=== PATIENT | female | born 2000 | race Two or more races ===

== ENCOUNTER 2024-01-23 09:23 | Inpatient (IN) | payer MEDICAID, SELFPAY ==
[2024-01-23] VITALS (13 sets, daily range): BP systolic 105–135; BP diastolic 56–90; PULSE 66–94; RESP 18; TEMP 36.7–37.1; O2SAT 98–100; BMI 27.1
[2024-01-23] MEDS: BETAMET ACET/BETAMET NA PH (Celestone) 6 MG/ML VIAL 12 MG IM (09:50)
[2024-01-23 09:54] LABS: Basophils % (Auto) 0 % (0-2.5); Eosinophils # (Auto) 0.2 Thou/mm3 (0.0-0.5); Eosinophils % (Auto) 2 % (0-10); Hematocrit 31.3 % (36.0-46.0); Immature Granulocytes % (Auto) 1 % (0-0); Immature Granulocytes Auto 0.05 Thou/mm3 (0.00-0.00); Lymphocytes # (Auto) 3.6 Thou/mm3 (1.0-4.8); Lymphocytes % (Auto) 35 % (10-50); Mean Corpuscular HGB Conc 35.1 g/dl (31.0-37.0); Mean Corpuscular Hemoglobin 30.1 pg (25.0-35.0); Mean Corpuscular Volume 86 fL (80-100); Monocytes # (Auto) 0.7 Thou/mm3 (0.0-0.8); Monocytes % (Auto) 7 % (0-12); Neutrophils # (Auto) 5.5 Thou/mm3 (1.8-7.7); Neutrophils % (Auto) 55 % (37-80); Nucleated Red Blood Cell % 0 /100 WBC (0); Platelet Count 195 Thou/mm3 (140-440); RDW Standard Deviation 38.8 fL (36.4-46.3); Red Blood Count 3.66 Miln/mm3 (4.00-5.20)
[2024-01-23] MEDS: OXYTOCIN in NS 20 units 20 UNIT/1,000 ML BAG 125 UNIT IV (10:30)
[2024-01-23] MEDS: LIDOCAINE HCL 1% 20 ML VIAL INFL (10:35)
--- NOTE | 2024-01-23 10:42 | PD.LDHP ---
Documentation for date of: 01/23/24 OB Labor/Induct. HPI History of Present Illness : 2 Para: 1 Gestational Age (weeks): 35 History of present illness: 23-year-old G2, P1 who comes at approximately 35 weeks in active labor. Patient states being seen at [facility], denies medical or surgical history States allergy to penicillin Review of Systems Allergic/Immunologic Comments: Penicillin Past Medical History Surgical History OTHER SURGICAL HX: Denies Past Medical History Comments PMH COMMENT: Denies Meds Home Medications and Allergies Home Medications ?Medication ?Instructions ?Recorded ?Confirmed ?Type No Known Home Medications 01/23/24 01/23/24 History Allergies Allergy/AdvReac Type Severity Reaction Status Date / Time Penicillins Allergy Rash Verified 01/23/24 09:35 OB Exam Physical Exam Vital signs: Pulse BP 82 111/56 L 01/23/24 10:40 01/23/24 10:40 Detailed Labor and Delivery Exam Dilation (cm): 8 Effacement (%): 100 station: 0 Baseline heart rate: 140 monitor accelerations: 15x15 monitor decelerations: None 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 Active phase of labor. GBS unknown OB Assessment & Plan Additional Plan Additional Plan Comment: Admit to labor delivery. Celestone for lung maturation. Vancomycin for GBS prophylaxis due to penicillin allergy
[2024-01-23 12:48] LABS: Syphilis Nonreactive (Nonreactive)
--- NOTE | 2024-01-23 13:35 | OBDSUM_ITS ---
Data (Gill) Data : 2 Para: 1 Term: 0 : 1 : 0 Delivery Data (Gill) Labor Data ROM Date: 01/23/24 ROM Time: 10:04 Rupture Type: AROM Delivery Data Labor Onset Stage 1 Date: 01/23/24 Labor Onset Stage 1 Time: 09:25 Labor Onset Stage 2 Date: 01/23/24 Labor Onset Stage 2 Time: 10:05 Delivery Date: 01/23/24 Delivery Time: 10: Placenta Delivery Date: 01/23/24 Placenta Delivery Time: 10:29 Delivered by: Ramandeep Garrido Delivery nurse: Avani Calero Other staff at delivery: Nursery Nurse Other staff at delivery: 2nd Nurse Other staff at delivery: Branch Assistant Other staff at delivery: Nurse Other staff at delivery: Lacy Deng Other staff at delivery: Karla Soriano Delivery Method Delivery: Vaginal Delivery Type: Spontaneous Presentation: Vertex Anesthesia Type Primary Anesthesia: None Placenta Placenta Delivery: Spontaneous Cord Sample: Cord Blood Obtained Umbilical Cord Umbilical Vessels: 3 Data (Gill) [place] Data Gender: Female Infant Weight Grams: 2320 1 Minute Total: 7 5 Minute Total: 9
[2024-01-23] MEDS: IBUPROFEN TAB 400 MG TABLET 800 MG PO (15:53)
[2024-01-23 15:58] LABS: Amphetamine/Metham Scrn,Ur OB Negative (Negative); Benzoylecgonine Screen, Ur OB Negative (Negative); Opiate Screen,Urine OB Negative (Negative); THC Screen,Urine OB Negative (Negative)
[2024-01-23 17:32] LABS: HIV (1&2) Antibody Rapid Non-Reactive
[2024-01-23 17:43] LABS: Chlamydia trachomatis PCR Negative (Not Detect); Neisseria Gonorrhoeae DNA PCR Negative (Not Detect); Trichomonas Negative (Negative)
[2024-01-24] VITALS: BP 110/70; PULSE 71; RESP 18; TEMP 36.9; O2SAT 97
[2024-01-24 00:35] LABS: Hepatitis B Surface Antigen Non Reactive (Non React); Rubella, IgG Antibody Equivocal
[2024-01-24 01:00] LABS: Hepatitis C Antibody Non Reactive (Non React)
[2024-01-24 04:00] VITALS: BP 106/65; PULSE 88; RESP 18; TEMP 36.9; O2SAT 100
[2024-01-24 07:10] LABS: Basophils % (Auto) 0 % (0-2.5); Eosinophils % (Auto) 0 % (0-10); Hematocrit 31.6 % (36.0-46.0); Hemoglobin 11.4 g/dL (12.0-16.0); Immature Granulocytes % (Auto) 1 % (0-0); Immature Granulocytes Auto 0.13 Thou/mm3 (0.00-0.00); Lymphocytes # (Auto) 2.4 Thou/mm3 (1.0-4.8); Lymphocytes % (Auto) 11 % (10-50); Mean Corpuscular HGB Conc 36.1 g/dl (31.0-37.0); Mean Corpuscular Hemoglobin 30.7 pg (25.0-35.0); Mean Corpuscular Volume 85 fL (80-100); Monocytes # (Auto) 1.4 Thou/mm3 (0.0-0.8); Monocytes % (Auto) 7 % (0-12); Neutrophils # (Auto) 17.3 Thou/mm3 (1.8-7.7); Neutrophils % (Auto) 82 % (37-80); Nucleated Red Blood Cell % 0 /100 WBC (0); Platelet Count 254 Thou/mm3 (140-440); RDW Standard Deviation 38.3 fL (36.4-46.3); Red Blood Count 3.71 Miln/mm3 (4.00-5.20); White Blood Count 21.2 Thou/mm3 (3.6-11.0)
[2024-01-24 07:40] VITALS: BP 103/70; PULSE 73; RESP 17; TEMP 36.6; O2SAT 98
--- NOTE | 2024-01-24 08:22 | PD.LDPPPRG ---
Subjective Subjective Interval history: Patient is doing well denies any fever, vaginal bleeding. Mentions cramping that she feels in her pelvis however rates the pain at 6 out of 10. Denies any nausea vomiting or sharp pain Exam Vital Signs Temp Pulse Resp BP Pulse Ox O2 Del Method 98.4 F 88 18 106/65 100 Room Air 01/24/24 04:00 01/24/24 04:00 01/24/24 04:00 01/24/24 04:00 01/24/24 04:00 01/24/24 04:00 Constitutional Constitutional: no acute distress Routine HEENT Exam Head: Present normocephalic and atraumatic Eye: Present EOMI and PERRL ENT: Present mucous membranes moist Routine Neck Exam Neck: Present supple and trachea midline Routine Respiratory Exam Respiratory: Present chest non-tender, lungs clear, normal breath sounds and no resp distress Routine Cardiovascular Exam Cardiovascular: Present RRR Routine Abdominal Exam Abdominal: Present soft and normoactive bowel sounds Routine Extremities Exam Extremities: Present full ROM Routine Skin Exam Skin: Present intact, dry and warm Routine Neurological Exam Neurological: Present alert, oriented X3 and CN II-XII intact Routine Psychiatric Exam Psychiatric: Present normal affect and normal thought process Objective Labs 01/24/24 06:45 Labs: Laboratory Results - last 24 hr 01/23/24 01/23/24 01/23/24 09:40 13:30 15:07 WBC 10.0 RBC 3.66 L Hgb 11.0 L Hct 31.3 L MCV 86 MCH 30.1 MCHC 35.1 RDW Std Deviation 38.8 Plt Count 195 Neut % (Auto) 55 Lymph % (Auto) 35 Callahan % (Auto) 7 Eos % (Auto) 2 Baso % (Auto) 0 Neut # (Auto) 5.5 Lymph # (Auto) 3.6 Callahan # (Auto) 0.7 Eos # (Auto) 0.2 Baso # (Auto) 0.0 Immature Gran # (Auto) 0.05 H Absolute Nucleated RBC 0.00 Immature Gran % 1 H Nucleated RBC % 0 Urine Opiates Screen U Amphetamin/Meth Scrn U Cocaine Metab Screen U Marijuana (THC) Screen Syphilis Serology Nonreactive Chlam trachomat DNA PCR Negative Hep Bs Antigen Hepatitis C Antibody Non Reactive HIV 1&2 Antibody Rapid N.gonorrhoeae DNA (PCR) Negative Rubella IgG Antibody Trichomonas DNA Probe Negative Blood Type O Negative Rho(D) IG Studies Ready Antibody Screen POSITIVE Antibody Identification Anti-D from RhoGam Maternal Bleed Negative Blood Bank Wristband ID Yes 01/23/24 01/24/24 15:10 06:45 WBC 21.2 H D RBC 3.71 L Hgb 11.4 L Hct 31.6 L MCV 85 MCH 30.7 MCHC 36.1 RDW Std Deviation 38.3 Plt Count 254 D Neut % (Auto) 82 H Lymph % (Auto) 11 Callahan % (Auto) 7 Eos % (Auto) 0 Baso % (Auto) 0 Neut # (Auto) 17.3 H Lymph # (Auto) 2.4 Callahan # (Auto) 1.4 H Eos # (Auto) 0.0 Baso # (Auto) 0.0 Immature Gran # (Auto) 0.13 H Absolute Nucleated RBC 0.00 Immature Gran % 1 H Nucleated RBC % 0 Urine Opiates Screen Negative U Amphetamin/Meth Scrn Negative U Cocaine Metab Screen Negative U Marijuana (THC) Screen Negative Syphilis Serology Chlam trachomat DNA PCR Hep Bs Antigen Non Reactive Hepatitis C Antibody HIV 1&2 Antibody Rapid Non-Reactive N.gonorrhoeae DNA (PCR) Rubella IgG Antibody Equivocal L Trichomonas DNA Probe Blood Type Rho(D) IG Studies Antibody Screen Antibody Identification Maternal Bleed Blood Bank Wristband ID Assessment & Plan Assessment Comment Assessment comment: 23-year-old status post vaginal deliveries post day 1 Delivery yesterday at 10 PM has not yet completed her 24 hours observation Meeting all milestones Baby at the bedside breast-feeding Plan Comment Plan Comment: Continue post care Anticipate discharge tomorrow Time Spent With Patient Time: Total time spent is greater than 50% in coordination of care (as documented) at patient's floor/unit and/or counseling patient:
[2024-01-24 11:00] VITALS: BP 105/69; PULSE 71; RESP 18; TEMP 36.8; O2SAT 100
[2024-01-24 20:00] VITALS: BP 103/65; PULSE 74; RESP 18; TEMP 36.6; O2SAT 98
[2024-01-25] VITALS: BP 99/62; PULSE 70; RESP 19; TEMP 36.5; O2SAT 97
[2024-01-25 04:00] VITALS: BP 104/65; PULSE 73; RESP 16; TEMP 36.6; O2SAT 97
--- NOTE | 2024-01-25 10:16 | PD.LDPPPRG ---
Subjective Subjective Interval history: Delivery type: Patient doing well this morning. No acute complaints. Ambulating, tolerating p.o. and voiding without difficulty. HTN/Pre-Eclampsia screen: No chest pain, shortness of breath, headache, visual changes, epigastric or right upper quadrant pain. Breast-feeding, lochia diminishing. Bowel: Flatus+/ BM+ Exam Vital Signs Temp Pulse Resp BP Pulse Ox O2 Del Method 98 F 73 16 104/65 97 Room Air 01/25/24 04:00 01/25/24 04:00 01/25/24 04:00 01/25/24 04:00 01/25/24 04:00 01/25/24 04:00 Constitutional Constitutional: no acute distress Routine HEENT Exam Head: Present normocephalic and atraumatic Eye: Present EOMI and PERRL ENT: Present mucous membranes moist Routine Neck Exam Neck: Present supple and trachea midline Routine Respiratory Exam Respiratory: Present chest non-tender, lungs clear, normal breath sounds and no resp distress Routine Cardiovascular Exam Cardiovascular: Present RRR Routine Abdominal Exam Abdominal: Present soft and normoactive bowel sounds Routine Extremities Exam Extremities: Present full ROM Routine Skin Exam Skin: Present intact, dry and warm Routine Neurological Exam Neurological: Present alert, oriented X3 and CN II-XII intact Routine Psychiatric Exam Psychiatric: Present normal affect and normal thought process Objective Labs 01/24/24 06:45 Assessment & Plan Problem List (1) delivery without spontaneous labor: Status: Acute Assessment and plan: 1. Continue routine /post-op care 2. Labs reviewed, cbc appropriate 3. Remove dressing/Renee 4. Encourage to ambulate, shower 5. Encourage PO intake, breast feeding Time Spent With Patient Time: Total time spent is greater than 50% in coordination of care (as documented) at patient's floor/unit and/or counseling patient:
--- NOTE | 2024-01-25 10:16 | PC.SS ---
PATTERNMAKER METAL BENCH conducted bedside contact with the patient to address nursing referral indicating patient?s delivered pre-term and in NICU. PATTERNMAKER METAL BENCH introduced self, role and basis of contact. Patient confirmed pre-term natural delivery of , Felicia. Original due date 02-24-24, per patient. J[place] is the patient?s second child. Oldest child is approximately 2 years old. Patient denied elevated presence of either anxiety or depression due to circumstance. Patient shared ability to obtain support from family assisting patient with mood stability. Patient denies a history of mental health. Patient resides at home with her parents. FOB, Maurice Lazar; to be involved with rearing of the . Patient is not aligned with [facility]. Patient is receiving both SNAP and TANF. Patient denies history of alcohol/drug use. Patient denies CWS intervention. Patient denies episodes of domestic violence. Kristin Melgar provided OB services. Patient states consistency with OB appointments. Patient has access to appropriate supplies and equipment. Patient has access to car seat. Family will provide transportation upon discharge. Patient describes possessing support system consisting of FOB, parents and extended family. No further intervention required at this time, clinical social work aide will be available to address any further concerns. PATTERNMAKER METAL BENCH updated bedside nurse.
--- NOTE | 2024-01-25 10:17 | ESDS_ITS ---
DS: Providers Provider Date of admission: 01/23/24 09:32 Primary care physician: Jw Rodriguez MD Admitting Provider: Monster Arreguin MD Attending Provider on Admission: Henry Loera MD Consults: 01/23/24 10:46 Referral Routine Comment: Attending Provider on DC: Henry Loera MD Discharging Provider: Henry Loera MD DS: Diagnosis Discharge Diagnosis (1) delivery without spontaneous labor: Status: Acute Problem List Completed Was Problem List Reviewed/Reconciled?: Yes Summary/Hosp Course Brief History: 23-year-old G2, P1 who comes at approximately 35 weeks in active labor. Patient states being seen at [facility], denies medical or surgical history States allergy to penicillin Time Spent with Patient Time attestation: Total time spent providing and/or coordinating discharge services: Exam Vital Signs Temp Pulse Resp BP Pulse Ox O2 Del Method 98 F 73 16 104/65 97 Room Air 01/25/24 04:00 01/25/24 04:00 01/25/24 04:00 01/25/24 04:00 01/25/24 04:00 01/25/24 04:00 Discharge Plan Plan Patient Disposition: HOME (Self Care) Patient condition on transfer: Stable Prescriptions/Referrals Prescriptions/Med Rec: New ibuprofen 600 mg tablet 600 mg PO Q6H PRN (Reason: fever or pain) 10 Days Qty: 40 0RF docusate sodium [Stool Softener] 100 mg capsule 100 mg PO QDAY 15 Days Qty: 15 0RF Referrals: Jw Rodriguez MD [Primary Care Provider] - Henry Loera MD [Physician] - Patient/Caregiver Discharge Instructions Meds to Beds: Yes Discharge Activity: activity as tolerated Print Language: Ukrainian Stand Alone Forms: Amara Award Info., Patient Portal Info Letter Discharge Order Discharge Orders: Discharge (Routine); Ordered 01/25/24 Ordered By: Henry Loera Planned Discharge Date 01/25/24
== END 2024-01-25 11:10 | disposition home or self-care (01) | DRG 560 ==
LOC: S4SX 13:46 → S4NX 14:35
PROVIDERS: Admitting Provider Obstetrics & Gynecology; PCP Family Medicine; Visit Provider Obstetrics & Gynecology
DX: O60.14X0 Preterm labor third trimester with preterm delivery third trimester, not applicable or unspecified (principal); Z3A.35 35 weeks gestation of pregnancy; Z37.0 Single live birth
CPT/HCPCS: 36415; 59409; 80307; 85025; 85461; 86703; 86762; 86780; 86803; 86850; 86870; 86900; 86901; 87340; 87491; 87591; 87661; J0702; J2590; J2790; J3490; A9270

== ENCOUNTER 2024-01-29 18:02 | Emergency (ER) | payer MEDICAID, SELFPAY ==
[2024-01-29 18:21] VITALS: BP 115/71; PULSE 95; RESP 18; TEMP 36.9; O2SAT 97; BMI 23.3
--- NOTE | 2024-01-29 18:23 | EDNOTE_ITS ---
ED Dental RME/HPI General Chief complaint: Dental/Oral/Throat Stated complaint: DENTAL PAIN ON RIGHT LOWER SIDE Time Seen by Provider: 01/29/24 18:17 Arrival date/time: 01/29/24 18:02 23 year old female present to emergency room with c/o of dental pain/swelling for 1 day. LOCATION: Teeth SEVERITY: Symptoms are described as being severe with limitations on activities of daily living CONTEXT: The patient is unable to identify any inciting events. DURATION/TIMING: The symptoms started approximately 1 day ago and have been constant since and have been progressive getting worse. ASSOCIATED SYMPTOMS: The patient is unable to identify any other associated symptoms. MODIFYING FACTORS: The patient is unable to identify any alleviating or aggravating symptoms. PERTINENT ROS: no fevers, no chest pain/shortness of breath no nausea,vomiting, diarrhea, no dizziness/headache no rash no loc/syncope episode REVIEW OF SYSTEMS: See History of Present Illness - with the exception of those mentioned in the history of present illness, all other systems reviewed and reported as negative GENERAL: In general the patient is awake, interactive, in an emergency department gurney. HEAD/EYES/EARS/NOSE/THROAT: normo-cephalic, atraumatic, mucus membranes are moist, anicteric, palpebral conjunctiva is pink, trachea is midline. CARDIOVASCULAR: + right lower teeth/cheek mild swelling no airway obstruction no lugwigs regular rate and regular rhythm, no murmurs, heart sounds are not distant, strong pulses in all four extremities that are equal and symmetric bilateral upper and lower extremities, normal capillary refill. EXTREMITY: no tenderness to palpation over the long bones or large joints of the bilateral upper and lower extremities, no joint swelling, no joint erythema, no signs of trauma, no unilateral leg swelling and no peripheral edema. SKIN: warm, dry, well-perfused, no jaundice, no rash, no telangiectasias or petechia. PSYCH: calm, cooperative, no evidence of psychosis or agitation Related Data Previous Rx's ?Medication ?Instructions ?Recorded docusate sodium 100 mg capsule 100 mg PO QDAY 15 days #15 caps 01/25/24 (Stool Softener) ibuprofen 600 mg tablet 600 mg PO Q6H PRN fever or pain 10 01/25/24 days #40 tabs clindamycin HCl 300 mg capsule 300 mg PO QID 10 days #40 caps 01/29/24 methylprednisolone 4 mg tablets in 4 mg PO .as directed #21 tabs 01/29/24 a dose pack (Medrol (Elvis)) Allergies Allergy/AdvReac Type Severity Reaction Status Date / Time Penicillins Allergy Rash Verified 01/29/24 18:03 Course Course Course Narrative: Presentation consistent with dental pain of tooth abscess. No evidence of Collin's Angina, large abscess pocket, requirement for emergent extraction, or other complications. Provided prescription for as stated below, first dose given prior to discharge. Patient informed to follow up with local dentist. Return to ER if pain uncontrolled, abscess that drains purulent fluid, high fevers, trouble swallowing, or other concerns.? Plan:? rx: clindamycin 300mg qid for 10 days, medro dose elvis Discharge from ED? F/U with local dentist Informed to return to ED if has new or worsening symptoms. Expressed understanding of and agreement with plan and all questions answered. Quality Measures none Orders Category Date Time Status Clindamycin [Cleocin] Med 01/29/24 18:20 Discontinued 300 mg PO X1 ONE predniSONE Med 01/29/24 18:22 Discontinued 20 mg PO X1 ONE Vital Signs Vital signs: Vital Signs Temperature 98.4 F 01/29/24 18:21 Pulse Rate 95 01/29/24 18:21 Respiratory Rate 18 01/29/24 18:21 Blood Pressure 115/71 01/29/24 18:21 Pulse Oximetry (%) 97 01/29/24 18:21 Oxygen Delivery Method Room Air 01/29/24 18:21 Dental / Oral Patient data External records reviewed:: None Clinical information provided by:: patient Social determinants that could affect healthcare access:: none Patient has the following chronic illnesses:: none How is presenting disease/condition affected by chronic disease/condition?: no chronic disease Evaluation data The following diagnostics were reviewed and interpreted by me:: other (specify) (none ) Lab and/or radiology exams considered but not ordered:: none Interpretation Summary: none Medications / Prescriptions Medications or Prescriptions considered but not ordered:: none Medication administrations:: Medication Administration History Discontinued Medications Clindamycin HCl (Clindamycin 150 Mg Capsule) 300 mg PO X1 ONE Stop: 01/29/24 18:21 Prednisone (Prednisone 20 Mg Tablet) 20 mg PO X1 ONE Stop: 01/29/24 18:23 none Consultations Consultation(s) initiated? (list below): No Consultation #1 (Physician, Specialty, Details): none Diagnosis Dental Differential Diagnosis: gingival abscess, dental caries, toothache, dental abscess and fracture of tooth Most likely diagnosis given after review of the tests above:: dental abscess Admission Indicated Admission indicated?: not indicated Admission Request Was there a request for admission?: No Disposition Plan Disposition Plan: Discharge Discharge Attestation Discharge Attestation: The patient and all family members were given an opportunity to ask questions and understood the discharge instructions. Discharge instructions specifically effects, indications for sooner follow up or return to the emergency department, and the expected course of current diagnosis. Patient condition: Stable Discharge Plan Plan Patient Disposition: HOME (Self Care) Health Concerns: Follow with PMD as directed Take tylenol or motrin as need Return to ED if sx worsen Prescriptions/Referrals Prescriptions/Med Rec: New clindamycin HCl 300 mg capsule 300 mg PO QID 10 Days Qty: 40 0RF methylprednisolone [Medrol (Elvis)] 4 mg tablets,dose pack 4 mg PO .as directed Qty: 21 0RF No Action ibuprofen 600 mg tablet 600 mg PO Q6H PRN (Reason: fever or pain) 10 Days Qty: 40 0RF docusate sodium [Stool Softener] 100 mg capsule 100 mg PO QDAY 15 Days Qty: 15 0RF Problem List Clinical Impression: Dental infection Patient/Caregiver Discharge Instructions Education Materials: ED Abscess Antibiotic ... Print Language: Ivorian Stand Alone Forms: Amara Award Info., Patient Portal Info Letter
[2024-01-29] MEDS: predniSONE 20 MG TABLET PO (18:28)
[2024-01-29] MEDS: CLINDAMYCIN 150 MG CAPSULE 300 MG PO (18:28)
== END 2024-01-29 18:45 | disposition home or self-care (01) ==
LOC: SERX 18:38
PROVIDERS: Emergency Provider Emergency Medicine
DX: K04.7 Periapical abscess without sinus (principal)
CPT/HCPCS: 99282; J7512; A9270

== ENCOUNTER 2024-06-25 15:57 | Day surgery (SDC) | payer MEDICAID, SELFPAY ==
[2024-06-25] VITALS (9 sets, daily range): BP systolic 100–127; BP diastolic 62–82; PULSE 81–125; RESP 15–25; TEMP 36.2–37; O2SAT 98–100; BMI 21.1
--- NOTE | 2024-06-25 16:56 | PD.EDRME ---
Rapid Medical Screening Exam RME Arrival date/time: 06/25/24 15:57 This is a 23-year-old female who states that she thinks she is . Patient's last menstrual period was in early April per patient. Patient states that today she is having cramping and having vaginal bleeding. Patient is a 2 para 0 patient previously had a miscarriage per patient. Patient denies past medical history I have greeted and performed a focused initial assessment of this patient. Initial appropriate labs ordered at this time. A comprehensive ED assessment and evaluation of the patient and analysis of all test and completion of medical decision making process will be conducted by additional ED provider. Chief Complaint: Vaginal Bleeding Time Seen by Provider: 06/25/24 16:28 Vital signs: Vital Signs Temperature 98.6 F 06/25/24 16:23 Pulse Rate 81 06/25/24 16:23 Respiratory Rate 18 06/25/24 16:23 Blood Pressure 100/63 06/25/24 16:23 Pulse Oximetry (%) 98 06/25/24 16:23 Oxygen Delivery Method Room Air 06/25/24 16:23
[2024-06-25] MEDS: ACETAMINOPHEN 500 MG TABLET 1000 MG PO (17:02)
[2024-06-25 18:03] LABS: Basophils # (Auto) 0.1 Thou/mm3 (0.0-0.2); Basophils % (Auto) 1 % (0-2.5); Eosinophils % (Auto) 0 % (0-10); Hematocrit 36.2 % (36.0-46.0); Hemoglobin 12.6 g/dL (12.0-16.0); Immature Granulocytes % (Auto) 1 % (0-0); Lymphocytes # (Auto) 2.4 Thou/mm3 (1.0-4.8); Lymphocytes % (Auto) 11 % (10-50); Mean Corpuscular HGB Conc 34.8 g/dl (31.0-37.0); Mean Corpuscular Hemoglobin 29.8 pg (25.0-35.0); Mean Corpuscular Volume 86 fL (80-100); Monocytes # (Auto) 1.5 Thou/mm3 (0.0-0.8); Monocytes % (Auto) 7 % (0-12); Neutrophils # (Auto) 17.5 Thou/mm3 (1.8-7.7); Neutrophils % (Auto) 81 % (37-80); Nucleated Red Blood Cell % 0 /100 WBC (0); Platelet Count 240 Thou/mm3 (140-440); RDW Standard Deviation 43.9 fL (36.4-46.3); Red Blood Count 4.23 Miln/mm3 (4.00-5.20); White Blood Count 21.6 Thou/mm3 (3.6-11.0)
[2024-06-25 18:46] LABS: Alanine Aminotransferase < 7 U/L (10-49); Albumin, Serum 4.2 gm/dL (3.5-5.0); Albumin/Globulin Ratio 1.4 (1.2-2.2); Alkaline Phosphatase 85 U/L (46-116); Anion Gap 10 (7-16); Aspartate Amino Transferase 14 U/L (0-34); BUN/Creatinine Ratio 12 Ratio (12-20); Beta HCG,Quantitative 7671 mIU/mL (<5.0); Blood Urea Nitrogen 7 mg/dL (9-23); Calcium 8.8 mg/dL (8.3-10.6); Calcium (Corrected) 8.8 mg/dL (8.5-10.1); Carbon Dioxide 21.1 mMol/L (20.0-31.0); Chloride 103 mMol/L (98-107); Creatinine (Component) 0.6 mg/dL (0.6-1.3); Estimated Creatinine Clearance 109.1 mL/min (>60); Glucose 104 mg/dL (74-106); Osmolality,Calculated 266 (275-295); Potassium 3.4 mMol/L (3.4-5.1); Sodium 134 mMol/L (136-145); Total Protein 7.2 gm/dL (5.7-8.2); eGFR > 60 See Note
--- NOTE | 2024-06-25 18:52 | XR_ITS ---
Examination: OB Transvaginal ultrasound of the pelvis, complete Technique: Transvaginal sonographic images pelvis performed using shelton scale imaging Exam date and time: June 25, 2024 1916 hours INDICATIONS: Pelvic cramping with heavy bleeding beginning last night with fever and chills FINDINGS: Uterus 9.6 cm, blood in the cervix Endometrial stripe 0.4 cm Right ovary 2.6 cm arterial flow Left ovary 2.8 cm total flow cyst versus gestational sac in the left adnexal region 10 x 7 x 11 mm IMPRESSION: Suspicious for left ectopic , recommend short term follow-up transvaginal pelvic sonography.
--- NOTE | 2024-06-25 18:52 | EDNOTE_ITS ---
ED OB Contraction Preg RMI/HPI General Chief complaint: Vaginal Bleeding Stated complaint: MISCARRIAGE SINCE LAST NIGHT Time Seen by Provider: 06/25/24 16:28 Source: patient, RN notes reviewed and old records reviewed Arrival date/time: 06/25/24 15:57 Mode of arrival: ambulatory Limitations: no limitations RME / HPI RME / HPI Narrative: 23yof of unknown weeks gestation (LMP Mar 2024) presents to ED for vaginal bleeding and generalized pelvic cramping that initiated yesterday. Patient reports nausea and x1 episode of vomiting yesterday, none today. No fever, dysuria or back pain reported. No medications or treatment [employer] prevention [employer]. Related Data Previous Rx's ?Medication ?Instructions ?Recorded docusate sodium 100 mg capsule 100 mg PO QDAY 30 days #30 caps 06/25/24 (Stool Softener) hydrocodone 5 mg-acetaminophen 325 1 tab PO Q6H PRN pa in 3 days #10 06/25/24 mg tablet tabs ibuprofen 600 mg tablet 600 mg PO Q6H PRN fever or p ain 10 06/25/24 days #30 tabs Allergies Allergy/AdvReac Type Severity Reaction Status Date / Time diphenhydramine (From Allergy Severe Palpitation Verified 06/25/24 16:00 Benadryl Allergy) s Penicillins Allergy Severe Rash Verified 06/25/24 16:00 vancomycin Allergy Severe Rash Verified 06/25/24 16:00 Review of Systems Review of Systems Systems Reviewed: All systems reviewed, normal except as documented Constitutional Constitutional: Denies chills and Denies fever(s) Gastrointestinal Gastrointestinal: Reports nausea and Reports vomiting (x1 yesterday) Genitourinary Genitourinary: Reports abnormal vaginal bleeding, Denies dysuria and Reports pelvic pain Musculoskeletal Musculoskeletal: Denies back pain Past Medical History Surgical History OTHER SURGICAL HX: Denies past surgical history Social History SMOKING STATUS: Never smoker SUBSTANCE USE: marijuana ALCOHOL: Never Past Medical History Comments PMH COMMENT: Denies past medical history ED Exam General Limitations: Present no limitations General appearance: Present alert and in no apparent distress Head Head exam: Present atraumatic and normocephalic Eye Eye exam: Present normal appearance, PERRL and EOMI ENT ENT exam: Present normal exam and mucous membranes moist Neck Neck exam: Present normal inspection and full ROM Chest Chest inspection: Present normal inspection and symmetric chest wall rise Respiratory Respiratory exam: Present normal lung sounds bilaterally; Absent respiratory distress Cardiovascular Cardiovascular exam: Present regular rate and normal rhythm Abdominal Exam Abdominal exam: Present soft and tenderness (Mild left pelvic tenderness); Absent distention, guarding or rebound Extremities Exam Extremities exam: Present normal inspection and full ROM Neurological Exam Neurological exam: Present alert and oriented X3 Psychiatric Psychiatric exam: Present normal affect and normal mood Skin Skin exam: Present warm, dry, intact and normal color Course Course Course Narrative: 2021: Consult to ob, Dr. Loera. Reviewed imaging and hcg quant. Plan for OR for ectopic 2024: Patient updated on imaging and plan for admit, surgery. Clinically stable, no complaints at this time. Last PO approx 1 hour ago (bag of chips). Quality Measures none Orders Category Date Time Status Patient Condition Routine Admission 06/25/24 20:30 Ordered SDC [Place in Surgical Day Care] Routine Admission 06/25/24 20:31 Active Activity as Tolerated Routine Care 06/25/24 20:30 Ordered Clip Operative Site as Needed X1 Care 06/25/24 20:30 Active Initiate Warming Therapy NOW Care 06/25/24 20:30 Active Insert IV NOW Care 06/25/24 20:33 Active May take PO meds w/sips of H2O PRN Care 06/25/24 20:30 Active NPO NEEDED Care 06/25/24 20:30 Active NPO NOW Care 06/25/24 20:30 Active Obtain Written Consent For: NOW Care 06/25/24 20:30 Active Consult to Obstetrics Stat Cons 06/25/24 20:37 Ordered Diet NPO (NOW) Diet 06/25/24 20:30 Active US OB transvaginal Stat Exams 06/25/24 18:52 Completed ABO/RH Type - Stat Lab 06/25/24 17:41 Results Beta HCG,Quantitative Stat Lab 06/25/24 17:41 Completed CBC Stat Lab 06/25/24 17:41 Completed Comprehensive Metabolic Panel Stat Lab 06/25/24 17:41 Completed Red Blood Cells Stat Lab 06/25/24 17:41 Results Type and Screen Stat Lab 06/25/24 17:41 Results Urinalysis, C/S if Indicated Stat Lab 06/25/24 20:46 Completed Acetaminophen Tab [Tylenol ES Tab] Med 06/25/24 16:55 Discontinued 1,000 mg PO X1 ONE Bupivacaine Mpf/Epi 0.5% [Sensorcaine-Mpf Inj 0.5% w/ Med 06/25/24 21:37 Discontinued Epi] 30 ml .ROUTE .STK-MED ONE Dexamethasone Inj [Decadron Inj] Med 06/25/24 21:26 Discontinued 10 mg .ROUTE .STK-MED ONE Famotidine Inj [Pepcid Inj] Med 06/25/24 21:19 Discontinued 20 mg IVP X1 ONE Lidocaine 1% Pf 2 ml [Xylocaine Pf 1% 2 ml] Med 06/25/24 21:40 Discontinued 2 ml .ROUTE .STK-MED ONE Lidocaine Jelly 2% 5 ml [Xylocaine Jelly 2% 5 ml] Med 06/25/24 21:29 Discontinued 5 ml .ROUTE .STK-MED ONE Metoclopramide Inj [Reglan Inj] Med 06/25/24 21:26 Discontinued 10 mg .ROUTE .STK-MED ONE Midazolam Inj [Versed Inj] Med 06/25/24 21:29 Discontinued 2 mg .ROUTE .STK-MED ONE PHENYLEPHRINE INJ in NS [Jori-synephrine Inj/Ns] Med 06/25/24 21:55 Discontinued 1,000 mcg .ROUTE .STK-MED ONE Propofol Inj [Diprivan Inj] Med 06/25/24 21:26 Discontinued 200 mg IV .STK-MED ONE Succinylcholine Inj [Anectine Inj] Med 06/25/24 21:26 Discontinued 200 mg .ROUTE .STK-MED ONE ceFAZolin/D5W 2 GM IV [Ancef 2gm Ivpb] Med 06/25/24 20:30 Discontinued 2 gm in 100 ml IV X1 fentaNYL INJ [Sublimaze Inj] Med 06/25/24 21:26 Discontinued 100 mcg .ROUTE .STK-MED ONE Code Status Routine Oth 06/25/24 20:30 Ordered Vital Signs Vital signs: Vital Signs Temperature 98.6 F 06/25/24 16:23 Pulse Rate 81 06/25/24 16:23 Respiratory Rate 18 06/25/24 16:23 Blood Pressure 100/63 06/25/24 16:23 Pulse Oximetry (%) 98 06/25/24 16:23 Oxygen Delivery Method Room Air 06/25/24 16:23 Vaginal Bleeding MDM Narrative MDM Narrative: 23yof of unknown weeks gestation (LMP Mar 2024) presents to ED for vaginal bleeding and generalized pelvic cramping that initiated yesterday. Patient reports nausea and x1 episode of vomiting yesterday, none today. No fever, dysuria or back pain reported. No medications or treatment [employer]. Patient sent to OR for ectopic . Patient data External records reviewed:: [facility] previous records (01/29/24 ED visit for dental infection) Clinical information provided by:: patient Social determinants that could affect healthcare access:: other (specify) (poor access to healthcare) Patient has the following chronic illnesses:: none How is presenting disease/condition affected by chronic disease/condition?: no chronic disease Evaluation data The following diagnostics were reviewed and interpreted by me:: lab results and radiology exam(s) Lab and/or radiology exams considered but not ordered:: none Interpretation Summary: hcg 7671 wbc 21 hgb 12.6 UA Ob ultrasound: no IUP per my read Ob ultrasound rad report: IMPRESSION: Suspicious for left ectopic , recommend short term follow-up transvaginal pelvic sonography. Dictated By: Ehsan Wagner MD Medications / Prescriptions Medications or Prescriptions considered but not ordered:: none Medication administrations:: Medication Administration History Discontinued Medications Acetaminophen (Acetaminophen 500 Mg Tablet) 1,000 mg PO X1 ONE Stop: 06/25/24 16:56 Last Admin: 06/25/24 17:02 Dose: 1,000 mg Documented By: MARTÍN Bupivacaine HCl/Epinephrine Bitart (Bupivacaine Mpf/Epi 0.5% 30 Ml Vial 1:200,000) Confirm Administered Dose 30 ml .ROUTE .STK-MED ONE Stop: 06/25/24 21:38 Dexamethasone Sodium Phosphate (Dexamethasone Sod Phos Inj 10 Mg/Ml Vial) Confirm Administered Dose 10 mg .ROUTE .STK-MED ONE Stop: 06/25/24 21:27 Famotidine (Famotidine Inj 10 Mg/Ml Vial 2 Ml) 20 mg IVP X1 ONE Stop: 06/25/24 21:20 Last Admin: 06/25/24 21:29 Dose: 20 mg Documented By: AKILA Fentanyl Citrate (Fentanyl Cit Inj 50 Mcg/Ml Amp 2ml) Confirm Administered Dose 100 mcg .ROUTE .STK-MED ONE Stop: 06/25/24 21:27 Cefazolin Sodium (Ancef 2gm Ivpb) 2 gm in 100 mls @ 200 mls/hr IV X1 ONE Stop: 06/25/24 20:59 Last Infusion: 06/25/24 21:32 Dose: Infused Documented By: Admin: 06/25/24 21:02 Dose: 200 mls/hr Documented By: EF Lidocaine HCl (Lidocaine Jelly 2% 5 Ml Tube) Confirm Administered Dose 5 ml .ROUTE .STK-MED ONE Stop: 06/25/24 21:30 Lidocaine HCl (Lidocaine Inj Pf 1% 2 Ml Vial) Confirm Administered Dose 2 ml .ROUTE .STK-MED ONE Stop: 06/25/24 21:41 Metoclopramide HCl (Metoclopramide Inj 5 Mg/Ml Vial 2 Ml) Confirm Administered Dose 10 mg .ROUTE .STK-MED ONE Stop: 06/25/24 21:27 Midazolam HCl (Midazolam Inj 1 Mg/Ml Vial 2 Ml) Confirm Administered Dose 2 mg .ROUTE .STK-MED ONE Stop: 06/25/24 21:30 Phenylephrine HCl (Phenylephrine Inj In Ns 100 Mcg/Ml 10 Ml Syringe) Confirm Administered Dose 1,000 mcg .ROUTE .STK-MED ONE Stop: 06/25/24 21:56 Propofol (Propofol Inj 10 Mg/Ml Vial 20 Ml) Confirm Administered Dose 200 mg IV .STK-MED ONE Stop: 06/25/24 21:27 Succinylcholine Chloride (Succinylcholine Inj 20 Mg/Ml Vial 10 Ml) Confirm Administered Dose 200 mg .ROUTE .STK-MED ONE Stop: 06/25/24 21:27 Above medication administered in ED Consultations Consultation(s) initiated? (list below): Yes Consultation #1 (Physician, Specialty, Details): Ob Dr. Loera Diagnosis Vaginal Bleeding Differential Diagnosis: missed , threatened , dysfunctional uterine bleeding, incomplete and ectopic without intrauterine Most likely diagnosis given after review of the tests above:: Left ectopic Admission Indicated Admission indicated?: indicated Admission Request Was there a request for admission?: Yes Admission Attestation Admission request attestation: Discussed case with [] from Hospitalist service regarding admission. Discussed patients ED course, exam findings, labs, and radiology results. The Hospitalist [agrees,declines] to accept the patient for admission. Disposition Plan Disposition Plan: Admit Critical Care Time Critical Care Time Critical Care Time: Yes Total Critical Care Time (min.): 75 Attestation: The high probability of sudden, clinically significant deterioration in the patient's condition required the highest level of my preparedness to intervene urgently. The services I provided to this patient were to treat and/or prevent clinically significant deterioration. Services included the following: chart data review, reviewing nursing notes and/or old charts, documentation time, teamcenter consultant collaboration regarding findings and treatment options, medication orders and management, direct patient care, vital sign assessments and ordering, int erpreting and reviewing diagnostic studies and lab tests. Aggregate critical care time includes only time during which I was engaged in work directly related to the patient's care, as described above, whether at bedside or elsewhere in the Emergency Department. It did not include time spent performing other reported procedures or the services of residents, students, nurses or physician assistants. Discharge Plan Plan Patient Disposition: Other Care w/in Hosp ([facility]C/[facility]IR) Patient condition on transfer: Stable Problem List Clinical Impression: Ectopic of left ovary, Vaginal bleeding
[2024-06-25] MEDS: ceFAZolin/D5W 2 GM IV 2 GM/100 ML BAG IV (21:02)
--- NOTE | 2024-06-25 21:21 | ESHP_ITS ---
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 The patient reports an unsure last menstrual period in March, indicating she is in early . The patient's chief complaints are vaginal bleeding and left lower quadrant pain. The onset and duration of these symptoms are not specified in the transcript. The location of the pain is specifically noted in the left lower quadrant. No information is provided about the character, aggravating or alleviating factors, radiation, timing, or severity of the pain or bleeding. There are no associated symptoms mentioned beyond the bleeding and pain. The patient's status is uncertain, with an unclear last menstrual period in March. This suggests the is in its early stages, though the exact gestational age is not determined. Social History - Living Situation: Patient has someone at home to contact Review of Systems Genitourinary: Positive for vaginal bleeding. Other: Positive for left lower quadrant pain. Meds Home Medications and Allergies Home Medications ?Medication ?Instructions ?Recorded ?Confirmed ?Type prenat.vits,bronson,cyl-miht-crvis 1 tab PO QDAY 11/10/21 11/22/21 History Allergies Allergy/AdvReac Type Severity Reaction Status Date / Time diphenhydramine (From Allergy Severe Palpitation Verified 06/25/24 16:00 Benadryl Allergy) s Penicillins Allergy Severe Rash Verified 06/25/24 16:00 vancomycin Allergy Severe Rash Verified 06/25/24 16:00 Exam - FINANCIAL ANALYSIS MANAGER Vital Signs Temp Pulse Resp BP Pulse Ox O2 Del Method 98.3 F 83 15 127/82 100 Room Air 06/25/24 20:52 06/25/24 20:52 06/25/24 20:52 06/25/24 20:52 06/25/24 20:52 06/25/24 20:52 Constitutional Constitutional: no acute distress Routine HEENT Exam Head: Present normocephalic and atraumatic Eye: Present EOMI and PERRL ENT: Present mucous membranes moist Routine Neck Exam Neck: Present supple and trachea midline Routine Abdominal Exam Abdominal: Present soft and normoactive bowel sounds Comments: LLQ tenderness ++, no guarding Routine Extremities Exam Extremities: Present full ROM Routine Psychiatric Exam Psychiatric: Present normal affect and normal thought process FINANCIAL ANALYSIS MANAGER - Results Labs 06/25/24 17:41 06/25/24 17:41 Labs: Short CBC 06/25/24 Range/Units 17:41 WBC 21.6 H (3.6-11.0) Thou/mm3 Hgb 12.6 (12.0-16.0) g/dL Hct 36.2 (36.0-46.0) % Plt Count 240 (140-440) Thou/mm3 BMP 06/25/24 17:41 Sodium 134 L Potassium 3.4 Chloride 103 Carbon Dioxide 21.1 BUN 7 L Creatinine 0.6 Glucose 104 Calcium 8.8 Liver Function 06/25/24 Range/Units 17:41 Total Bilirubin 1.0 (0.3-1.2) mg/dL AST 14 (0-34) U/L ALT < 7 L (10-49) U/L Alkaline Phosphatase 85 (46-116) U/L Albumin 4.2 (3.5-5.0) gm/dL Assessment and Plan Assessment and plan (1) Vaginal bleeding: Status: Acute (2) Ectopic of left ovary: Status: Acute Assessment and plan: Laboratory, Imaging, and Diagnostic Test Results - Date: Sat Jun 25 2024 - Serum hC - Transvaginal ultrasound: - Uterus: measuring 9.6 cm - Endometrial stripe: 0.4 cm - Right ovary: 2.6 cm with arterial flow - Left ovary: 2.8 cm - Left adnexa: cystic structure measuring 10 x 11 mm, suspicious for gestational sac-ectopic . Eliza Castro, 23-year-old female, , presents to the emergency room with vaginal bleeding and left lower quadrant pain, with suspected ectopic . Ectopic Assessment: Patient presents with vaginal bleeding and left lower quadrant pain. Serum hCG is 7671. Transvaginal ultrasound shows uterus measuring 9.6 cm with blood in the cervix, endometrial stripe of 0.4 cm, right ovary 2.6 cm with arterial flow, and left ovary 2.8 cm with a cystic structure in the left adnexa measuring 10 x 11 mm, suspicious for gestational sac-ectopic . Given the size of the sac and hCG levels, surgical intervention is indicated. Plan: - Perform laparoscopic surgery to remove ectopic - Three small incisions - Outpatient procedure - Expected recovery time: 72 hours - General anesthesia to be administered by Dr. Lr - Obtain informed consent for surgery and potential blood transfusion - Arrange for postoperative unit nurses to call patient's support person around 10:30 p.m. for updates - Procedure to start within 30 minutes of assessment - Total procedure time: approximately 30 minutes, with additional time for anesthesia induction and recovery - Discharge patient approximately one hour post-procedure - Follow-up available at [facility] Quality Measures Quality Measures none
[2024-06-25 21:24] LABS: Collection Type, Urine Voided
[2024-06-25] MEDS: FAMOTIDINE INJ 10 MG/ML VIAL 2 ML 20 MG IVP (21:29)
--- NOTE | 2024-06-25 21:39 | PC.NURSE ---
patient taken to surgery
[2024-06-25 21:52] LABS: Bacteria,Urine Rare; Bilirubin,Urine Negative (Negative); Blood,Urine 3+ (Negative); Clarity,Urine Clear (Clear/Hazy); Color,Urine Lt-Yellow (Lt Yel-Yel); Culture Indicated,Urine Not Indicated; Glucose, Urine Negative (Negative); Ketones,Urine 2+ (Negative); Leukocyte Esterase,Urine Positive (Negative); Nitrite,Urine Negative (Negative); PH,Urine 6.5 (5.0-7.0); Protein,Urine Negative (Neg - Trace); RBC,Urine 107 /hpf (0-3); Specific Gravity,Urine 1.014 (1.001-1.035); Squamous Epithelial Cell,Urine 2 /hpf (0-5); Urobilinogen,Urine Negative mg/dL (0.0-1.0); WBC,Urine 10 /hpf (0-5)
--- NOTE | 2024-06-25 22:30 | ESOP_ITS ---
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 Identity was confirmed by double identifiers and she was placed on the operating table.? General anesthesia was administered and airway was secured.? Patient was now positioned in the dorsal lithotomy position in Jarad stirrups.? The abdomen and perineum were prepped in the usual sterile fashion and sterile drapes were applied.? The bladder was emptied using a straight catheter.? A sponge stick was placed in the vagina for uterine manipulation.? Attention was now turned to the patient's abdomen.? A 5 mm incision was made at the base of the umbilicus using a scalpel.? Laparoscopic entry was accomplished under direct visualization using SavvySystemsview laparoscopic trocar.? Once intra-abdominal placement was confirmed pneumoperitoneum was insufflated to 15 mm of Hg.? A pair of accessory ports were placed 2 cm superior and medial to the ASIS bilaterally. The camera was now introduced into the abdomen and a preliminary survey was performed.? The uterus and right adnexa were noted to be within normal limits.? A simple appearing ovarian cyst was noted on the left side measuring about 3-4 cm cm in diameter.? The cyst was consistent in appearance with a follicular/corpus luteum cyst but no ectopic sac or hemoperitoneum was identified. The cyst was deroofed and clear fluid was obtained. Some amount of bleeding was noted from the cyst site and the harmonic device was used to cauterize the base. Surgicel powder was placed for additional hemostasis The peritoneal cavity was irrigated and all irrigation fluid was suctioned out.? The operative site was once again inspected and noted to be hemostatic. All instruments were now withdrawn.? Pneumoperitoneum was desufflated.? The laparoscopic ports were removed.?The skin was now closed using 4-0 Monocryl in a subcuticular fashion.? Local anesthetic was infiltrated into all the surgical sites.? The patient's skin was now cleaned, sterile dressings were applied.? Patient was undraped, and general anesthesia was reversed and she was transferred to the recovery room in a stable and awake condition. Specimen: none Estimated blood loss (ml): 50 Complications: none Surgical staff Operation Date: 06/25/24 21:00 Case Staff Anesthesiologist: Victor Hugo Lr RNplaster pattern caster: Marly Vallejo Diagnosis Discharge Diagnosis (1) Ectopic of left ovary: Status: Acute Problem List Completed Was Problem List Reviewed/Reconciled?: Yes
--- NOTE | 2024-06-25 22:47 | SUR.PHASEI ---
received patient and report from Dr Lr and RN Gennaro. Pt awake, a&o x3. Pt denies any nausea or pain at this time. Pt states she has the urge to urinate, bedpan placed under patient at this time. dermabond x3 to abd - cdi. IV intact, no s/s of redness or infiltration to site. scant sanguinous drainage to peripad noted.
--- NOTE | 2024-06-25 23:00 | SUR.PHASEII ---
pt vss, dressing remains cdi, no further drainage noted to perpad. pt awake, a&ox3. pt denies any pain or nausea. Pt tolerating oral fluids
--- NOTE | 2024-06-25 23:30 | SUR.PHASEII ---
dc instructions given to pt and her boyfriend Ryne, both stated verbal understanding.
--- NOTE | 2024-06-25 23:50 | SUR.PHASEII ---
vss, scant drainage noted to peripad, new peripad applied, further teaching to monitor for excessive bleeding, pt stated verbal understanding. Pt dressed self with min assist. Pt ambulated 5 steps from gurney to w/c w/ slight discomfort, but recovered well. dressing remain cdi. IV removed with cath intact, pt tolerated well.
== END 2024-06-25 23:52 | disposition home or self-care (01) ==
LOC: SERX 20:37 → S2EX 20:44
PROVIDERS: Nurse Practitioner Family; Emergency Provider Emergency Medicine; Referring Provider Obstetrics & Gynecology; Visit Provider Obstetrics & Gynecology
PROC: (CPT 49320; principal; 2024-06-25 21:00)
DX: O00.202 Left ovarian pregnancy without intrauterine pregnancy (principal); Z3A.00 Weeks of gestation of pregnancy not specified
CPT/HCPCS: 59151; 36415; 76817; 80053; 81001; 84702; 85025; 86850; 86900; 86901; 86923; A4217; A4649; J0330; J0689; J1100; J2250; J2371; J2704; J2765; J3010; J3490; A9270

== ENCOUNTER 2024-12-20 19:05 | Emergency (ER) | payer MEDICAID, SELFPAY ==
[2024-12-20 19:06] VITALS: BMI 22.1
[2024-12-20 20:06] VITALS: BP 104/66; PULSE 85; RESP 18; TEMP 36.8; O2SAT 99
--- NOTE | 2024-12-20 20:24 | XR_ITS ---
Examination: Transvaginal ultrasound of the pelvis, complete Technique: Transvaginal sonographic images pelvis performed using shelton scale imaging Exam date and time: December 20, 2024, 2042 hours INDICATIONS: Vaginal bleeding beginning 1 month ago FINDINGS: Uterus 7.9 cm endometrial stripe 17 mm No intrauterine gestation Right ovary 3.5 cm arterial flow Masslike area in the right adnexal region adjacent to the ovary I do not visualize a definite pole Possible gestational sac 1.3 cm corresponding to 6 weeks 1 day gestational age Left ovary 3.5 cm arterial flow IMPRESSION: Findings suspicious for right ectopic nonviable , clinical correlation advised and short-term follow-up transvaginal pelvic sonography recommended
--- NOTE | 2024-12-20 20:24 | EDRME_ITS ---
Rapid Medical Screening Exam [facility] Arrival date/time: 12/20/24 19:05 24F with history of ectopic presents to ED with 1 month of intermittent but worsening pelvic pain and vaginal bleeding (patient is irregular). Patient had a recent ectopic . Urine test at home was negative. Chief Complaint: Abdominal Pain Vital signs: Vital Signs Temperature 98.3 F 12/20/24 20:06 Pulse Rate 85 12/20/24 20:06 Respiratory Rate 18 12/20/24 20:06 Blood Pressure 104/66 12/20/24 20:06 Pulse Oximetry (%) 99 12/20/24 20:06
[2024-12-20 20:45] LABS: Basophils # (Auto) 0.1 Thou/mm3 (0.0-0.2); Basophils % (Auto) 1 % (0-2.5); Eosinophils # (Auto) 0.2 Thou/mm3 (0.0-0.5); Eosinophils % (Auto) 2 % (0-10); Hematocrit 33.1 % (36.0-46.0); Hemoglobin 10.2 g/dL (12.0-16.0); Immature Granulocytes Auto 0.02 Thou/mm3 (0.00-0.00); Lymphocytes # (Auto) 3.0 Thou/mm3 (1.0-4.8); Lymphocytes % (Auto) 31 % (10-50); Mean Corpuscular HGB Conc 30.8 g/dl (31.0-37.0); Mean Corpuscular Hemoglobin 24.2 pg (25.0-35.0); Mean Corpuscular Volume 79 fL (80-100); Monocytes # (Auto) 0.7 Thou/mm3 (0.0-0.8); Monocytes % (Auto) 7 % (0-12); Neutrophils # (Auto) 5.8 Thou/mm3 (1.8-7.7); Neutrophils % (Auto) 59 % (37-80); Nucleated Red Blood Cell # 0.00 Thou/mm3 (0.00-0.00); Nucleated Red Blood Cell % 0 /100 WBC (0); Platelet Count 380 Thou/mm3 (140-440); RDW Standard Deviation 50.2 fL (36.4-46.3); Red Blood Count 4.21 Miln/mm3 (4.00-5.20); White Blood Count 9.8 Thou/mm3 (3.6-11.0)
[2024-12-20 21:20] LABS: Alanine Aminotransferase < 7 U/L (10-49); Albumin, Serum 4.4 gm/dL (3.5-5.0); Albumin/Globulin Ratio 1.6 (1.2-2.2); Alkaline Phosphatase 116 U/L (46-116); Anion Gap 7 (7-16); Aspartate Amino Transferase 19 U/L (0-34); BUN/Creatinine Ratio 19 Ratio (12-20); Beta HCG,Quantitative < 1 mIU/mL (<5.0); Bilirubin,Total 0.3 mg/dL (0.3-1.2); Blood Urea Nitrogen 15 mg/dL (9-23); Calcium 8.9 mg/dL (8.3-10.6); Calcium (Corrected) 8.9 mg/dL (8.5-10.1); Carbon Dioxide 28.5 mMol/L (20.0-31.0); Chloride 106 mMol/L (98-107); Creatinine (Component) 0.8 mg/dL (0.6-1.3); Estimated Creatinine Clearance 81.1 mL/min (>60); Globulin 2.7 gm/dL (2.3-3.5); Glucose 93 mg/dL (74-106); Osmolality,Calculated 282 (275-295); Potassium 3.8 mMol/L (3.4-5.1); Sodium 141 mMol/L (136-145); Total Protein 7.1 gm/dL (5.7-8.2); eGFR > 60 See Note
--- NOTE | 2024-12-20 21:56 | EDNOTE_ITS ---
ED Abdominal Pain RME/HPI General Chief Complaint: Abdominal Pain Stated complaint: ABD PAIN AND VAG BLEEDING Arrival date/time: 12/20/24 19:05 RME / HPI RME / HPI narrative: 12/20/24 19:05 24F with history of ectopic presents to ED with 1 month of intermittent but worsening pelvic pain and vaginal bleeding (patient is irregular). Patient had a recent ectopic . Urine test at home was negative. Dr. Douglas?s Main ED Evaluation: 24yo female with a history of ectopic (05/2024) presents to the ED for a chief complaint of worsening left pelvic pain. Patient states her pain is at the site where she had surgery for her ectopic . Patient states her menstrual cycles are irregular, reporting she's been menstruating since the end of October. Patient denies any N/V, dizziness, lightheadedness, fever, chills, or any other associated symptoms. Patient does not follow-up with [facility]. Related Data Previous Rx's ?Medication ?Instructions ?Recorded naproxen 500 mg tablet (Naprosyn) 500 mg PO BID PRN pa in #20 tabs 12/20/24 Allergies Allergy/AdvReac Type Severity Reaction Status Date / Time diphenhydramine (From Allergy Severe Palpitation Verified 12/20/24 19:09 Benadryl Allergy) s Penicillins Allergy Severe Rash Verified 12/20/24 19:09 vancomycin Allergy Severe Rash Verified 12/20/24 19:09 Review of Systems Review of Systems Systems Reviewed: All systems reviewed, normal except as documented ED Exam Narrative Physical exam: Generally patient is alert and in no obvious distress, heart regular rate and rhythm, lungs clear to auscultation equal bilaterally, abdomen soft bowel sounds present also nontender, external pelvic exam showed the patient to have mild left-sided adnexal tenderness. Course Quality Measures none Orders Category Date Time Status US transvaginal Stat Exams 12/20/24 20:24 Completed Beta HCG,Quantitative Stat Lab 12/20/24 20:33 Completed CBC Stat Lab 12/20/24 20:33 Completed CMP [Comprehensive Metabolic Panel] Stat Lab 12/20/24 20:33 Completed Urinalysis, C/S if Indicated Stat Lab 12/20/24 20:24 Ordered Ketorolac Inj [Toradol Inj] Med 12/20/24 22:00 Once 30 mg IM X1 ONE Vital Signs Vital signs: Vital Signs Temperature 98.3 F 12/20/24 20:06 Pulse Rate 85 12/20/24 20:06 Respiratory Rate 18 12/20/24 20:06 Blood Pressure 104/66 12/20/24 20:06 Pulse Oximetry (%) 99 12/20/24 20:06 Abdominal Pain MDM MDM Narrative MDM Narrative:: Scribe Attestation: 12/20/24 - Makayla, Tanika Rodriguez am scribing for and in the presence of Dr. Douglas. Patient had a left-sided ectopic in May of this year. Quantitative beta-hCG tonight is less than 1. Lab work is rather unremarkable with the exception of slight anemia. Ultrasound showed a masslike area adjacent to the right ovary. Patient must follow-up with her [facility] physician. She was given Toradol 30 mg IM for pain. Naprosyn as prescribed. Again, the patient's quantitative beta-hCG tonight was less than 1. Patient data External records reviewed:: [facility] previous records (Per chart review, patient was admitted here on 06/25/24 for ectopic of left ovary) Clinical information provided by:: patient Social determinants that could affect healthcare access:: none Patient has the following chronic illnesses:: none How is presenting disease/condition affected by chronic disease/condition?: no chronic disease Evaluation data The following diagnostics were reviewed and interpreted by me:: lab results and radiology exam(s) Lab and/or radiology exams considered but not ordered:: none Interpretation Summary: [facility] Report Signed Patient: GONSALO RIVERS. Record#: [id number] Birthdate: 2000 Age/Sex: 24 / F [facility]: Ordering Physician: Tho Spears PA-C Date of Service: 12/20/24 Procedure(s): US transvaginal Accession Number(s): [id number] cc: Jw Rodriguez MD; Ehsan Wagner MD; Tho Spears PA-C~ Examination: Transvaginal ultrasound of the pelvis, complete Technique: Transvaginal sonographic images pelvis performed using shelton scale imaging Exam date and time: December 20, 2024, 2042 hours INDICATIONS: Vaginal bleeding beginning 1 month ago FINDINGS: Uterus 7.9 cm endometrial stripe 17 mm No intrauterine gestation Right ovary 3.5 cm arterial flow Masslike area in the right adnexal region adjacent to the ovary I do not visualize a definite pole Possible gestational sac 1.3 cm corresponding to 6 weeks 1 day gestational age Left ovary 3.5 cm arterial flow IMPRESSION: Findings suspicious for right ectopic nonviable , clinical correlation advised and short-term follow-up transvaginal pelvic sonography recommended Dictated By: Ehsan Wagner MD Signed By: <Electronically signed by Ehsan Wagner MD in OV> Medications / Prescriptions Medications or Prescriptions considered but not ordered:: none Medication administrations:: Medication Administration History Ketorolac Tromethamine (Ketorolac Inj 30 Mg/Ml Vial) 30 mg IM X1 ONE Stop: 12/20/24 22:01 see above Consultations Consultation(s) initiated? (list below): No Diagnosis Differential diagnosis abdominal pain: other (See MDM) Most likely diagnosis given after review of the tests above:: see clinical impression below Admission Indicated Admission indicated?: not indicated Admission Request Was there a request for admission?: No Disposition Plan Disposition Plan: Discharge Discharge Attestation Discharge Attestation: The patient and all family members were given an opportunity to ask questions and understood the discharge instructions. Discharge instructions specifically effects, indications for sooner follow up or return to the emergency department, and the expected course of current diagnosis. Patient condition: Stable Discharge Plan Plan Patient Disposition: HOME (Self Care) Prescriptions/Referrals Prescriptions/Med Rec: New naproxen [Naprosyn] 500 mg tablet 500 mg PO BID PRN (Reason: pain) Qty: 20 0RF Referrals: Jw Rodriguez MD [Primary Care Provider, Family Practice] - In 1 week Problem List Clinical Impression: Pelvic pain Patient/Caregiver Discharge Instructions Additional Instructions: Naprosyn as prescribed. You must follow-up with an [facility] physician. Return to ER as needed or if condition worsens. Print Language: Spanish Stand Alone Forms: [facility] Award Info., Patient Portal Info Letter
[2024-12-20 22:10] VITALS: BP 113/55; PULSE 98; RESP 18; TEMP 36.6; O2SAT 99
[2024-12-20] MEDS: KETOROLAC INJ 30 MG/ML VIAL IM (22:19)
== END 2024-12-20 22:38 | disposition home or self-care (01) ==
PROVIDERS: Physician Assistant; Emergency Provider Emergency Medicine; PCP Family Medicine
DX: O46.90 Antepartum hemorrhage, unspecified, unspecified trimester (principal); Z3A.00 Weeks of gestation of pregnancy not specified
CPT/HCPCS: 36415; 76830; 80053; 81001; 84702; 85025; 96372; 99282; J1885